=== PATIENT | female | born 1975 | race African-American/Black ===

== ENCOUNTER 2021-10-27 14:01 | Emergency (ER) | payer SELFPAY ==
[2021-10-27] MEDS ORDERED: DIAZEPAM 5 MG TABLET ONE (15:35)
[2021-10-27] MEDS ORDERED: KETOROLAC 30 MG/ML INJ ONE (15:35)
--- NOTE | 2021-10-27 16:11 | RAD REPORT ---
EXAM DESCRIPTION: USExtremity Venous Uni Ltd10/27/2021 3:49 pm CLINICAL HISTORY: Right leg pain COMPARISON: None. FINDINGS: Right common femoral, superficial femoral, popliteal and right posterior tibial veins are compressible and demonstrate augmentation. Doppler demonstrates good flow. Grayscale, color and spectral analysis performed on all vessels IMPRESSION: No evidence of deep venous thrombosis involving the right lower extremity.
--- NOTE | 2021-10-27 16:15 | RAD REPORT ---
EXAM DESCRIPTION: RAD - Ankle Left 3 View -10/27/2021 4:09 pm CLINICAL HISTORY: Left ankle pain FINDINGS: No fracture or dislocation is seen.
--- NOTE | 2021-10-27 16:16 | RAD REPORT ---
EXAM DESCRIPTION: RAD - Knee Right 3 View - 10/27/2021 4:09 pm CLINICAL HISTORY: Right knee pain FINDINGS: No fracture or dislocation is seen. No significant bone or joint abnormality noted
--- NOTE | 2021-10-27 17:50 | ER ---
Nurse's Notes [facility] Name: Amanda Roblero Age: 46 yrs Sex: Female : 1975 Arrival Date: 10/27/2021 Time: 14:05 Bed 13 Private MD: Diagnosis: Pain in right knee Presentation: 10/27 14:29 Chief complaint: Patient states: she has a hx of arthritis in her right knee. Patient ap3 states she has been working a lot lately, and is presenting to the ED today with pain 10/10 in her right knee. Patient reports that she has been trying to wear a knee brace to help, but the pain has gotten too bad thus the reason for her visit to the ED today. Coronavirus screen: At this time, the client does not indicate any symptoms associated with coronavirus-19. Ebola Screen: No symptoms or risks identified at this time. Initial Sepsis Screen: Does the patient meet any 2 criteria? No. Patient's initial sepsis screen is negative. Does the patient have a suspected source of infection? No. Patient's initial sepsis screen is negative. Risk Assessment: Do you want to hurt yourself or someone else? Patient reports no desire to harm self or others. Onset of symptoms was October 23, 2021. 14:29 Method Of Arrival: Ambulatory ap3 14:29 Acuity: VIET 4 ap3 Triage Assessment: 14:34 General: Appears uncomfortable, Behavior is calm, cooperative, appropriate for age. ap3 Pain: Complains of pain in right knee Pain currently is 10 out of 10 on a pain scale. Pain began gradually. Neuro: Level of Consciousness is awake, alert, obeys commands, Oriented to person, place, time, situation, Appropriate for age Gait is steady. Respiratory: Airway is patent Respiratory effort is even, unlabored. Musculoskeletal: Reports pain in right knee. 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 - Social history:: Smoking status: Patient denies any tobacco usage or history of. Screenin:35 Abuse screen: Denies threats or abuse. Nutritional screening: No deficits noted. ap3 Tuberculosis screening: No symptoms or risk factors identified. Fall Risk None identified. No fall in past 12 months (0 pts). Assessment: 15:30 General: Appears uncomfortable, Behavior is calm, cooperative, appropriate for age. ll1 Pain: Complains of pain in right knee. Musculoskeletal: Circulation, motion, and sensation intact. Capillary refill < 3 seconds, Tenderness present in right knee Reports pain in right knee. 16:30 Reassessment: No changes from previously documented assessment. Patient and/or family ll1 updated on plan of care and expected duration. Pain level reassessed. Patient is alert, oriented x 3, equal unlabored respirations, skin warm/dry/pink. 17:30 Reassessment: No changes from previously documented assessment. Patient and/or family ll1 updated on plan of care and expected duration. Pain level reassessed. Patient is alert, oriented x 3, equal unlabored respirations, skin warm/dry/pink. 18:03 Reassessment: No changes from previously documented assessment. Patient and/or family ll1 updated on plan of care and expected duration. Pain level reassessed. Patient is alert, oriented x 3, equal unlabored respirations, skin warm/dry/pink. 18:08 Musculoskeletal: Circulation, motion, and sensation intact. Capillary refill < 3 ll1 seconds, Range of motion: limited in right knee. Vital Signs: 14:29 BP 144 / 100; Pulse 73; Resp 17; Temp 97.9; Pulse Ox 100% ; Weight 104.33 kg; Height 5 ap3 ft. 6 in. (167.64 cm); Pain 10/10; 18:08 BP 152 / 96; Pulse 70; Resp 16; Pulse Ox 100% ; ll1 14:29 Body Mass Index 37.12 (104.33 kg, 167.64 cm) ap3 ED Course: 14:05 Patient arrived in ED. kz 14:33 Triage completed. ap3 14:35 Arm band placed on left wrist. ap3 14:41 Orin Hair, SAUL is Primary Nurse. ll1 14:42 Patient placed in an exam room, on a stretcher. ll1 15:03 Brendan Babin PA is PHCP[facility] 15:03 Baldev Manuel MD is Attending Physician. [facility] 15:49 US Extremity Venous Unilateral Ltd In Process Unspecified. EDMS 16:09 Knee Right 3 View XRAY In Process Unspecified. EDMS 16:09 Ankle Left 3 View XRAY In Process Unspecified. EDMS 16:28 Patient has correct armband on for positive identification. Bed in low position. Call ll1 light in reach. Side rails up X 1. Cardiac monitoring not applicable on this patient. 17:49 Mauri Vuong MD is Referral Physician. [facility] Administered Medications: 15:44 Drug: Ketorolac 30 mg Route: IM; Site: left vastus lateralis; ll1 16:50 Follow up: Response: No adverse reaction ll1 15:44 Drug: Valium (diazepam) 5 mg Route: PO; ll1 16:50 Follow up: Response: No adverse reaction; Pain is decreased; RASS: Alert and Calm (0) 1 Outcome: 17:49 Discharge ordered by . [facility] 18:09 Patient left the ED. 1 Signatures: Dispatcher [employer] EDPR Brendan Babin PA PA Maryse Jessica, RN RN ap3 Orin Hair RN RN ll1 Mary Anne Ruiz Corrections: (The following items were deleted from the chart) 14:34 14:33 Allergies: No Known Allergies; ap3 ap3
--- NOTE | 2021-10-27 17:50 | EDPHYS ---
Physician Documentation [facility] Name: Amanda Roblero Age: 46 yrs Sex: Female : 1975 Arrival Date: 10/27/2021 Time: 14:05 Bed 13 Private MD: ED Physician Baldev Manuel HPI: 10/27 15:21 This 46 yrs old Black Female presents to ER via Ambulatory with complaints of Knee Pain jmm - Right. 15:21 The patient presents with pain. Onset: The symptoms/episode began/occurred gradually, 1 jmm week(s) ago. Modifying factors: The symptoms are alleviated by nothing. the symptoms are aggravated by movement, weight bearing, bending knee. Associated signs and symptoms: Pertinent positives: numbness. Is a 46-year-old female with history of arthritis the presents emerged part with complaints of ongoing right knee pain which has been exacerbated while she was at work. Patient states she has not taken any breaks. States she does have an extensive history of right knee pain. Patient attempted to use [id number] medication without any relief.. 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 - Social history:: Smoking status: Patient denies any tobacco usage or history of. ROS: 15:21 Constitutional: Negative for fever, chills, and weight loss, Cardiovascular: Negative jmm for chest pain, palpitations, and edema, Respiratory: Negative for shortness of breath, cough, wheezing, and pleuritic chest pain. 15:21 MS/extremity: Positive for pain. 15:21 All other systems are negative. Exam: 15:21 Constitutional: This is a well developed, well nourished patient who is awake, alert, jmm and in no acute distress. Head/Face: atraumatic. Eyes: EOMI, no conjunctival erythema appreciated ENT: Moist Mucus Membranes Neck: Trachea midline, Supple Chest/axilla: Normal chest wall appearance and motion. Cardiovascular: Regular rate and rhythm. No edema appreciated Respiratory: Normal respirations, no respiratory distress appreciated Abdomen/GI: Non distended, soft Back: Normal ROM Skin: General appearance color normal 15:21 Musculoskeletal/extremity: Painful range of motion appreciated of the right knee, compartments are soft, full dorsalis pedis pulse, neurovascular intact. Swelling noted to the left ankle, no tenderness at the base of the fifth metatarsal, compartments are soft, full dorsalis pedis pulse, neurovascular intact. 15:21 Skin: Appearance: Color: normal in color. 15:21 Neuro: Orientation: is normal, Mentation: is normal, Memory: is normal. 15:21 Psych: Behavior/mood is pleasant, cooperative. Vital Signs: 14:29 BP 144 / 100; Pulse 73; Resp 17; Temp 97.9; Pulse Ox 100% ; Weight 104.33 kg; Height 5 ap3 ft. 6 in. (167.64 cm); Pain 10/10; 18:08 BP 152 / 96; Pulse 70; Resp 16; Pulse Ox 100% ; ll1 14:29 Body Mass Index 37.12 (104.33 kg, 167.64 cm) ap3 MDM: 15:21 Patient medically screened. [facility] 16:33 Data reviewed: vital signs, nurses notes. Counseling: I had a detailed discussion with [facility] the patient and/or guardian regarding: the historical points, exam findings, and any diagnostic results supporting the discharge/admit diagnosis. 17:48 Counseling: I had a detailed discussion with the patient and/or guardian regarding: [facility] radiology results, the need for outpatient follow up, to return to the emergency department if symptoms worsen or persist or if there are any questions or concerns that arise at home. ED course: Pain is relieved in the ED. Patient advised to follow with orthopedics otherwise given strict return precautions. Patient understood agrees plan of care. 10/27 15:22 Order name: Knee Right 3 View XRAY; Complete Time: 16:18 [facility] 10/27 15:22 Order name: Ankle Left 3 View XRAY; Complete Time: 16:17 [facility] 10/27 15:22 Order name: US Extremity Venous Unilateral Ltd; Complete Time: 16:13 [facility] 10/27 16:57 Order name: Knee Immobilizer; Complete Time: 17:49 [facility] Administered Medications: 15:44 Drug: Ketorolac 30 mg Route: IM; Site: left vastus lateralis; ll1 16:50 Follow up: Response: No adverse reaction ll1 15:44 Drug: Valium (diazepam) 5 mg Route: PO; ll1 16:50 Follow up: Response: No adverse reaction; Pain is decreased; RASS: Alert and Calm (0) ll1 Disposition Summary: 10/27/21 17:49 Discharge Ordered Location: Home [facility] Condition: Stable [facility] Diagnosis - Pain in right knee [facility] Followup: [facility] - With: Mauri Vuong MD - When: 2 - 3 days - Reason: Recheck today's complaints, Continuance of care, Re-evaluation by your physician Discharge Instructions: - Discharge Summary Sheet [facility] - Acute Knee Pain, Adult [facility] Forms: - Medication Reconciliation Form [facility] - Thank You Letter [facility] - Antibiotic Education [facility] - Prescription Opioid Use [facility] - Work release form [id number] Prescriptions: - orphenadrine citrate 100 mg Oral Tablet Sustained Release - take 1 tablet by ORAL route 2 times per day As needed; 20 tablet; Refills: 0, [facility] Product Selection Permitted Signatures: Dispatcher [employer] EDBrendan Ovalles PA PA m Maryse Sandoval, RN RN ap3 Orin Hair RN RN ll1 Corrections: (The following items were deleted from the chart) 14:34 14:33 Allergies: No Known Allergies; ap3 ap3
[2021-10-27 18:38] VITALS: BP 152/96; O2SAT 100
[2021-10-27 18:41] VITALS: TEMP 97.9
== END 2021-10-27 18:09 | disposition home or self-care (01) ==
LOC: ER 14:01
DX: M25.561 Pain in right knee (principal); R20.0 Anesthesia of skin; Z88.8 Allergy status to other drugs, medicaments and biological substances
CPT/HCPCS: 93971; 96372; 99283